=== PATIENT | female | born 1985 | race Caucasian/White ===

== ENCOUNTER 2022-12-12 04:07 | Day surgery (SDC) | payer OTHER ==
[2022-12-08 16:06] VITALS: BMI 23.9
[~2022-12-12 04:07] MED LIST: DOXYCYCLINE HYCLATE 100 MG VIAL IVPB ONE
[2022-12-12] MEDS ORDERED: ACETAMINOPHEN 325 MG TABLET (FP) PO PRN (08:31)
[2022-12-12] MEDS ORDERED: oxyCODONE HCL 5 MG TABLET PO PRN ×3 (08:31→08:55)
[2022-12-12] MEDS ORDERED: ONDANSETRON 4 MG/2 ML VIAL IVPUSH PRN ×2 (08:31→14:33)
[2022-12-12] MEDS ORDERED: SUCCINYLCHOLINE CHLORIDE 200 MG/10 ML SYRINGE ONE (08:36)
[2022-12-12] MEDS ORDERED: PROPOFOL 20 ML ONE ×2 (08:36→09:40)
[2022-12-12] MEDS ORDERED: MIDAZOLAM HCL 2 MG/2 ML SINGLE DOSE VIAL ONE (08:37)
[2022-12-12] MEDS ORDERED: LACTATED RINGERS SOLUTION 1,000 ML IV SCH (08:45)
[2022-12-12] MEDS ORDERED: IBUPROFEN 800 MG/8 ML IJ IVPB PRN (08:55)
[2022-12-12] MEDS ORDERED: IBUPROFEN 600 MG TABLET (FP) PO PRN (08:55)
[2022-12-12] MEDS ORDERED: ELECTROLYTE-148 SOLN 1,000 ML IV SCH (09:00)
[2022-12-12] MEDS ORDERED: ONDANSETRON 4 MG/2 ML VIAL ONE (09:26)
[2022-12-12] MEDS ORDERED: DEXAMETHASONE SOD PHOSPHATE 4 MG/1 ML VIAL ONE (09:26)
[2022-12-12] MEDS ORDERED: DOXYCYCLINE INJECTION 100 MG in DEXTROSE 5%-WATER 100 ML IVPB ONE (09:30)
[2022-12-12] MEDS ORDERED: DOXYCYCLINE HYCLATE 100 MG VIAL IVPB ONE (09:48)
[2022-12-12] MEDS ORDERED: IBUPROFEN 600 MG TABLET (FP) PO ONE (11:10)
[2022-12-12 11:23] VITALS: RESP 20
[2022-12-12 13:41] VITALS: BP 109/65; PULSE 80; TEMP 97.8
== END 2022-12-12 13:41 | disposition home or self-care (01) ==
LOC: JASU-SURG 04:07
PROVIDERS: ATTEND Obstetrics & Gynecology
PROC: 10A07Z6 Abortion of Products of Conception, Vacuum, Via Natural or Artificial Opening (ICD-10-PCS; principal; 2022-12-12 09:00)
DX: Z33.2 Encounter for elective termination of pregnancy (principal)
CPT/HCPCS: 76998-TC; 86850; 86900; 86901; 88305-TC; 94760

== ENCOUNTER 2024-08-11 20:05 | Inpatient (IN) | payer OTHER ==
[2024-08-11 20:40] LABS: BASO % 0.4 % (0-2.0); EOS % 0.9 % (0-4.5); HEMATOCRIT 33.6 % (32.4-45.2); HEMOGLOBIN 11.1 GM/dL (10.7-15.3); MCH 29.9 pg (25.7-33.7); MCHC 33.1 g/dl (32.0-36.0); MEAN CELL VOLUME 90.4 fl (80-96); MEAN PLT VOLUME 8.8 fl (7.5-11.1); MONO % 6.1 % (3.8-10.2); NEUT % 73.6 % (42.8-82.8); PLATELET COUNT 284 10^3/uL (134-434); RBC 3.71 M/mm3 (3.60-5.2); RDW 17.7 % (11.6-15.6)
[2024-08-11 20:49] LABS: INR 0.84 (0.83-1.09); PROTHROMBIN TIME (PATIENT) 9.7 SEC (9.7-13.0)
[2024-08-11 20:51] LABS: ACTIVATED PTT 27.9 SECONDS (25.2-36.5)
[2024-08-11 21:26] LABS: BLOOD UREA NITROGEN 16.2 mg/dL (7-18); CALCIUM 8.9 mg/dL (8.5-10.1)
[2024-08-11 21:30] LABS: CREATININE 0.6 mg/dL (0.55-1.3)
[2024-08-11] MEDS: ELECTROLYTE-148 SOLN 1,000 ML IV SCH ×2 (22:10→22:23)
[2024-08-11] MEDS: DINOPROSTONE 10 MG VAGINAL SUPPOSITORY VG ONE (22:10)
[2024-08-11 23:10] VITALS: BMI 25.1
[2024-08-12] MEDS ORDERED: PROMETHAZINE HCL 25 MG/1 ML VIAL ONE (09:57)
[2024-08-12] MEDS ORDERED: BUTORPHANOL TARTRATE 2 MG/ML VIAL ONE (09:57)
[2024-08-12] MEDS: BUTORPHANOL TARTRATE 1 MG/ML VIAL IVPB ONE (10:00)
[2024-08-12] MEDS: PROMETHAZINE HCL 25 MG/1 ML VIAL IVPB ONE (10:00)
[2024-08-12] MEDS ORDERED: AMPICILLIN SODIUM 2 GM VIAL ONE (11:41)
[2024-08-12] MEDS ORDERED: OXYTOCIN 30 UNITS in 0.9% NS 30 UNIT/500 ML INFUS.BAG IVPB ONE (11:42)
[2024-08-12] MEDS: AMPICILLIN - 2 GM in SODIUM CHLORIDE 100 ML IVPB ONE (11:45)
[2024-08-12] MEDS: OXYTOCIN 30 UNITS in 0.9% NS 30 UNIT/500 ML INFUS.BAG IVPB SCH (12:00)
[2024-08-12 12:25] LABS: HIV INTERPRETATION NEGATIVE (NEGATIVE)
[2024-08-12] MEDS ORDERED: FENTANYL/BUPIVACAINE/NS/PF - PCEA - 50 ML DISP.SYRIN EP ONE ×2 (14:05→18:25)
[2024-08-12] MEDS ORDERED: BUPIVACAINE HCL/PF 0.25% (2.5MG/ML) 10 ML VIAL ONE (14:27)
[2024-08-12] MEDS: FENTANYL/BUPIVACAINE/NS/PF - PCEA - 50 ML DISP.SYRIN EP SCH (14:50)
[2024-08-12] MEDS ORDERED: NALOXONE HCL 0.4 MG/ML VIAL IVPUSH PRN (15:19)
[2024-08-12] MEDS ORDERED: AMPICILLIN SODIUM 1 GM VIAL ONE ×2 (15:46→19:53)
[2024-08-12] MEDS: AMPICILLIN - 1 GM in SODIUM CHLORIDE 100 ML IVPB SCH (15:49)
[2024-08-12] MEDS ORDERED: LIDOCAINE HCL 1% PRESERVATIVE FREE - 30ML VIAL ONE (21:32)
[2024-08-12] MEDS ORDERED: BENZOCAINE 28 GM HEMORRHOIDAL OINTMENT TP PRN (21:56)
[2024-08-12] MEDS ORDERED: BISACODYL 10 MG SUPP.RECT RC PRN (21:56)
[2024-08-12] MEDS ORDERED: METHYLERGONOVINE MALEATE 0.2 MG/1 ML AMP IM PRN (21:56)
[2024-08-12] MEDS ORDERED: WITCH HAZEL 50% (TUCKS) 40 PAD/JAR PAD TP PRN (21:56)
[2024-08-12] MEDS: OXYTOCIN 20 UNITS in 0.9% NS 20 UNIT/1,000 ML INFUS.BAG IV SCH (22:00)
[2024-08-12 22:06] LABS: CORD BASE EXCESS -6.2 mmol/L (0-2); CORD HCO3 18.7 mmHg (20-29); CORD PCO2 36.2 mmHg (30-78); CORD pH 7.332 (7.14-7.44)
[2024-08-13] MEDS: ACETAMINOPHEN 325 MG TABLET (FP) PO PRN (01:38)
[2024-08-13 06:09] VITALS: RESP 18
[2024-08-13 09:39] LABS: BASO % 0.2 % (0-2.0); EOS % 0.4 % (0-4.5); HEMATOCRIT 32.5 % (32.4-45.2); HEMOGLOBIN 10.6 GM/dL (10.7-15.3); LYMPH % 9.8 % (8-40); MCH 29.7 pg (25.7-33.7); MCHC 32.4 g/dl (32.0-36.0); MEAN CELL VOLUME 91.7 fl (80-96); MEAN PLT VOLUME 9.4 fl (7.5-11.1); MONO % 3.5 % (3.8-10.2); NEUT % 86.1 % (42.8-82.8); PLATELET COUNT 263 10^3/uL (134-434); RBC 3.55 M/mm3 (3.60-5.2); RDW 17.6 % (11.6-15.6)
[2024-08-13] MEDS: IBUPROFEN 600 MG TABLET (FP) PO PRN (13:54)
[2024-08-13] MEDS: BENZOCAINE 20% 57 GM BOTTLE TP PRN (13:55)
[2024-08-13] MEDS ORDERED: SENNOSIDES/DOCUSATE COMBO (SENNA PLUS) TABLET (UD) PO PRN (22:00)
[2024-08-14 10:06] VITALS: BP 111/70; PULSE 90; TEMP 98
== END 2024-08-14 14:45 | disposition home or self-care (01) | DRG 560 ==
LOC: JLDR 20:05 → J3W 08-13 00:45
PROVIDERS: ADMIT Obstetrics & Gynecology; ATTEND Obstetrics & Gynecology
PROC: 10E0XZZ Delivery of Products of Conception, External Approach (ICD-10-PCS; principal; 2024-08-12)
PROC: 3E0P7VZ Introduction of Hormone into Female Reproductive, Via Natural or Artificial Opening (ICD-10-PCS; 2024-08-12)
DX: O48.0 Post-term pregnancy (principal); O99.824 Streptococcus B carrier state complicating childbirth; Z37.0 Single live birth; Z3A.41 41 weeks gestation of pregnancy; O70.0 First degree perineal laceration during delivery
CPT/HCPCS: 36415; 36600; 59409; 80048; 82803; 85025; 85610; 85730; 86780; 86850; 86900; 86901; 87389